=== PATIENT | female | born 1975 | race Caucasian/White ===

== ENCOUNTER 2016-07-21 14:10 | Day surgery (SDC) | payer OTHER ==
[~2016-07-21] VITALS: Ht 162.6 cm; Wt 113.8 kg
--- NOTE | 2016-07-21 08:39 | PCM.HPANE ---
Patient Data Surgeon Admitting Provider: Attending Provider:Radha Barroso MD Primary Care Physician:Antony Saldana MD Other Provider:Beth Melviningham Anesthesia Reason for Visit Right Upper Quadrant Pain Ht/WT & BMI Body Mass Index Allergies Coded Allergies: dichloralphenazone (Verified Allergy, Severe, memory loss, 03/25/16) isometheptene (Verified Allergy, Severe, memory loss, 03/25/16) amitriptyline (Unverified Allergy, Unknown, UNKNOWN, 03/25/16) amoxicillin (Unverified Allergy, Unknown, THROAT SWELLS (PT HAS TAKEN CEPHALOSPORINS W/O PROBLEMS), 03/25/16) Uncoded Allergies: MILK & MILK PRODUCTS (Allergy, Intermediate, 01/28/14) Past Anesthesia History Anesthesia History: Denies:: Anesthesia Reactions, Malignant Hyperthermia Diabetes History Hx Diabetes?: No MRSA MRSA: No Medications Reported Medications Zonisamide 50 Mg Ggxzxyj65 Mg PO BID 07/20/16 Sumatriptan Succinate (Zembrace Symtouch)3 Mg/0.5 Ml Pen.injctr3 Mg SQ BID PRN For Pain 07/20/16 Cholecalciferol (Vitamin D3) (Vitamin D3)5,000 Unit Capsule5,000 Unit PO DAILY 07/20/16 Albuterol Sulfate (Ventolin HFA Inhaler)200 Puff/18 Gm Inhaler2 Puff INH Q4 PRN For Wheezing #1 INHALER Ref 0 07/20/16 Sumatriptan Succinate 6 Mg/0.5 Ml Cartridge6 Mg SQ BID PRN Headache 07/20/16 Sumatriptan (Imitrex)100 Mg Unhehm702 Mg PO BID PRN Headache 07/20/16 Budesonide (Pulmicort Flexhaler)1 Puff/90 Mcg Aerp2 Puff IH BID #1 INHALER Ref 0 07/20/16 Ondansetron 8 Mg Tablet8 Mg PO TID PRN For Nausea 07/20/16 Omeprazole 40 Mg Capsule.dr40 Mg PO DAILY Ref 0 07/20/16 Nystatin 100,000 Unit/1 Ml Oral.qhdw737,000 Unit TOPICAL BID 07/20/16 Esomeprazole Magnesium (Nexium)40 Mg Capsule.dr40 Mg PO DAILY Ref 0 07/20/16 Montelukast 10 Mg Qjodeg63 Mg PO HS Ref 0 07/20/16 Methylprednisolone (MethylprednisoLONE)4 Mg Tablet4 Mg PO DAILY Ref 0 07/20/16 Ketorolac Tromethamine 10 Mg Qboovv28 Mg PO QID PRN For Pain 30 Days 07/20/16 Hydralazine 25 Mg Qyranp47 Mg PO DAILY Ref 0 07/20/16 Estradiol 1 Mg Tablet1 Mg PO DAILY Ref 0 07/20/16 Mometasone/Formoterol (Dulera 200 Mcg/5 Mcg Inhaler)13 Gm Hfa.aer.ad2 Puff IH BID 07/20/16 Dicyclomine (Bentyl)10 Mg Lqjgobr62 Mg PO QID PRN For Pain 07/20/16 Meclizine (Bonine)25 Mg Tab.chew25 Mg PO TID PRN For Dizziness 03/25/16 Gabapentin 300 Mg Waihdsf080-683 Mg PO HS Ref 0 03/25/16 Cetirizine 5 Mg Lsjewg50 Mg PO DAILY Ref 0 03/25/16 Duloxetine (Cymbalta)30 Mg Capsule.dr60 Mg PO DAILY Ref 0 01/28/14 Methocarbamol 500 Mg Adeyvp381 Mg PO BID 01/27/14 Discontinued Reported Medications Rizatriptan ODT (Rizatriptan)10 Mg Tab.bludmb51 Mg PO PRN 01/28/14 [clartin] No Conflict Check10 Mg PO DAILY 01/28/14 Cimetidine 200 Mg Lgncjn041 Mg PO DAILY 01/28/14 Beclomethasone Dipropionate (Qvar)8.7 Gm Aer.w.adap8.7 Gm IH 01/28/14 Albuterol HFA 8.5 Gm Hfa.aer.ad1-2 Puff IH Q 4-6HRS PRN PRN For Shortness of Breath #1 INHALER Ref 0 01/27/14 Aspirin/Acetaminophen/Caffeine (Migraine Relief Caplet)1 Each Tablet1 Each PO PRN PRN MIGRAINE 01/27/14 Ca Cmb No.1/Vit D3/B-6/FA/B12 (Vitamin D3 1,000 Unit Tablet)1 Each Tablet1 Each PO DAILY 30 Days 01/27/14 History History of ENT Problems?: Yes HEENT History: Positive for:: Sinus Problem Hx of Heart Problems?: No Cardiovascular History: Denies:: Congestive Heart Failure Hypertension Hx of Respiratory Problem?: Yes Respiratory History: Positive for:: Asthma Cough (CHRONIC) Dyspnea ([place]) Denies:: Tuberculosis Use of C-PAP Machine (SNORES) Hx Neurologic Problems?: Yes Neurological History: Positive for:: Headaches Hx of GI Problems?: Yes Gastrointestinal History: Positive for:: Gastroesphageal Reflux Heartburn Hx of Problems?: No Female Hx: Denies:: Currently Skin History: Positive for:: History Skin Disorders? (RASHES) Denies:: Pressure Ulcers Hx Musculoskeletal Problems?: Yes Musculoskeletal History: Denies:: Back Injury (C/OF NECK & BACK PAIN) Hx of Psycho/Social Problems?: Yes Psycho Social History: Positive for:: Anxiety Hx Depression Hx Surgeries?: Yes (MARCO) Hx Any Other Health Problems?: Yes Other History: Denies:: Cancer Endocrine Disease Hospitalization Thyroid Disease History Blood Transfusions: Denies:: Blood Transfusions Hx Diabetes: No Hx Alcohol Use: NoHx Substance Use: No Smoking Status: Current Every Day Smoker Have You Smoked inLast 12 mo: Yes Stop/Bang Risk Assessment Category Category 1A: Patient has history of documented sleep apnea, and HAS NOT received any narcotic, sedative or anesthesia administration during this stay. Category 1B: Patient has history of documented sleep apnea, and HAS received any narcotic , sedative or anesthesia administration during this stay Category 2: Patient has SUSPECTED Obstructive Sleep Apnea, and HAS received any narcotic , sedative or anesthesia administration during this stay. Category 3: Patient has SUSPECTED Obstructive Sleep Apnea and HAS NOT received narcotic, sedative or anesthesia administration during this stay. Category 4: Outpatient in Procedural Areas with known sleep apnea or who screen positive for High Risk via the STOP/BANG questionnaire. Plan Impression Patient chart reviewed, patient interviewed and anesthestic plan with risks, benefits, and alternatives discussed, and informed consent obtained. NPO Status: 1130pm Michael Louis MD Jul 21, 2016 08:39
[~2016-07-21 14:10] MED LIST: ALBU18HF INH; BUDE90AE IH; CETI5TAB28 PO; CHOL5000 PO; DICY10CA56 PO; DULO30CA PO; ESOM40CA41 PO; ESTR1TAB24 PO; GABA-502 PO; HYDR-3939 PO; IMI100 PO; KETO10TA PO; MECL-114 PO; METH4TAB12 PO; MOME13HF IH; MONT10TA23 PO; NYST1000 TOPICAL; OMEP40CA36 PO; ONDA-54 PO; ROB500 PO; SUMA6KIT2 SQ; ZONI50CA3 PO; [UNRECOGNIZED DRUG - CODE] SQ
[2016-07-21] MEDS ORDERED: fentaNYL-PF 50 mCg/mL 2 mL Inj ONE (14:11)
[2016-07-21] MEDS ORDERED: Propofol 10,000 mCg/mL 20 mL Inj ONE (14:11)
[2016-07-21 15:11] VITALS: BP 144/93; PULSE 94; RESP 16; O2SAT 100
[2016-07-21] MEDS: Lactated Ringer's 1,000 ML IV ONE ×2 (15:29→16:03)
[2016-07-21] MEDS ORDERED: Lactated Ringer's 1,000 ML IV SCH (15:36)
[2016-07-21] MEDS ORDERED: MetoCLOpramide 5 mg/mL 2 mL Inj IVPUSH PRN (15:40)
[2016-07-21] MEDS ORDERED: Atropine 0.4 mg/mL Inj IVPUSH PRN (15:40)
[2016-07-21] MEDS ORDERED: Ondansetron 2 mg/mL 2 mL Inj IVPUSH PRN (15:40)
--- NOTE | 2016-07-21 15:52 | PCM.HPANE ---
Patient Data Surgeon Admitting Provider: Attending Provider:Radha Barroso MD Primary Care Physician:Antony Saldana MD Other Provider:Adelita Melvin Anesthesia Reason for Visit Right Upper Quadrant Pain Ht/WT & BMI Height (Feet): 5 Height (Inches): 4 Weight (Kilograms): 113.85 Body Mass Index 42.00 Allergies Coded Allergies: dichloralphenazone (Verified Allergy, Severe, memory loss, 03/25/16) isometheptene (Verified Allergy, Severe, memory loss, 03/25/16) amitriptyline (Unverified Allergy, Unknown, UNKNOWN, 03/25/16) amoxicillin (Unverified Allergy, Unknown, THROAT SWELLS (PT HAS TAKEN CEPHALOSPORINS W/O PROBLEMS), 03/25/16) Uncoded Allergies: MILK & MILK PRODUCTS (Allergy, Intermediate, 01/28/14) Past Anesthesia History Anesthesia History: Positive for:: Anesthesia Reactions (CONFUSION/RESTLESSNESS ), Denies:: Abnormal Airway, Difficult Intubation, Fam Anesthesia Reaction, Fam Malignant Hypertherm, Malignant Hyperthermia Diabetes History Hx Diabetes?: No MRSA MRSA: No Medications Home Meds Incl Beta Inocente: No Reported Medications Zonisamide 50 Mg Omsdtib75 Mg PO BID 07/20/16 Cholecalciferol (Vitamin D3) (Vitamin D3)5,000 Unit Capsule5,000 Unit PO DAILY 07/20/16 Albuterol Sulfate (Ventolin HFA Inhaler)200 Puff/18 Gm Inhaler2 Puff INH Q4 PRN For Wheezing #1 INHALER Ref 0 07/20/16 Sumatriptan Succinate 6 Mg/0.5 Ml Cartridge6 Mg SQ BID PRN Headache 07/20/16 Sumatriptan (Imitrex)100 Mg Mrptns783 Mg PO BID PRN Headache 07/20/16 Budesonide (Pulmicort Flexhaler)1 Puff/90 Mcg Aerp2 Puff IH BID #1 INHALER Ref 0 07/20/16 Ondansetron 8 Mg Tablet8 Mg PO TID PRN For Nausea 07/20/16 Omeprazole 40 Mg Capsule.dr40 Mg PO DAILY Ref 0 07/20/16 Nystatin 100,000 Unit/1 Ml Oral.ymzi179,000 Unit TOPICAL BID 07/20/16 Esomeprazole Magnesium (Nexium)40 Mg Capsule.dr40 Mg PO DAILY Ref 0 07/20/16 Montelukast 10 Mg Lwybis70 Mg PO HS Ref 0 07/20/16 Methylprednisolone (MethylprednisoLONE)4 Mg Tablet4 Mg PO DAILY Ref 0 07/20/16 Ketorolac Tromethamine 10 Mg Idderd05 Mg PO QID PRN For Pain 30 Days 07/20/16 Estradiol 1 Mg Tablet1 Mg PO DAILY Ref 0 07/20/16 Mometasone/Formoterol (Dulera 200 Mcg/5 Mcg Inhaler)13 Gm Hfa.aer.ad2 Puff IH BID 07/20/16 Dicyclomine (Bentyl)10 Mg Sxkrwbd77 Mg PO QID PRN For Pain 07/20/16 Meclizine (Bonine)25 Mg Tab.chew25 Mg PO TID PRN For Dizziness 03/25/16 Gabapentin 300 Mg Hhnjwrh588-560 Mg PO HS Ref 0 03/25/16 Cetirizine 5 Mg Odirdn68 Mg PO DAILY Ref 0 03/25/16 Duloxetine (Cymbalta)30 Mg Capsule.dr60 Mg PO DAILY Ref 0 01/28/14 Methocarbamol 500 Mg Ystqpa177 Mg PO BID 01/27/14 Discontinued Reported Medications Sumatriptan Succinate (Zembrace Symtouch)3 Mg/0.5 Ml Pen.injctr3 Mg SQ BID PRN For Pain 07/20/16 Hydralazine 25 Mg Eohwqd59 Mg PO DAILY Ref 0 07/20/16 Rizatriptan ODT (Rizatriptan)10 Mg Tab.saxcgz23 Mg PO PRN 01/28/14 [clartin] No Conflict Check10 Mg PO DAILY 01/28/14 Cimetidine 200 Mg Yowaqh410 Mg PO DAILY 01/28/14 Beclomethasone Dipropionate (Qvar)8.7 Gm Aer.w.adap8.7 Gm IH 01/28/14 Albuterol HFA 8.5 Gm Hfa.aer.ad1-2 Puff IH Q 4-6HRS PRN PRN For Shortness of Breath #1 INHALER Ref 0 01/27/14 Aspirin/Acetaminophen/Caffeine (Migraine Relief Caplet)1 Each Tablet1 Each PO PRN PRN MIGRAINE 01/27/14 Ca Cmb No.1/Vit D3/B-6/FA/B12 (Vitamin D3 1,000 Unit Tablet)1 Each Tablet1 Each PO DAILY 30 Days 01/27/14 History History of ENT Problems?: Yes HEENT History: Positive for:: Sinus Problem Denies:: Abnormal Airway Difficult Intubation Dysphagia Hearing Problem Denture Type: Full- Upper Full- Lower Other HEENT Pertinent History: FULL UPPER AND LOWER LEFT AT HOME. Hx of Heart Problems?: Yes Cardiovascular History: Positive for:: Hypertension Denies:: AICD Atrial Fibrillation Chest Pain Congestive Heart Failure Pacemaker Valvular Heart Disease Hx of Respiratory Problem?: Yes Respiratory History: Positive for:: Asthma Dyspnea ([place]) Pneumonia Denies:: COPD Cough Hemoptysis Tuberculosis Use of C-PAP Machine (SNORES) Other Resp Pertinent History: HX OF HEAVY DAILY SMOKER Hx Neurologic Problems?: Yes Neurological History: Positive for:: Headaches Denies:: CVA Hx of GI Problems?: Yes Gastrointestinal History: Positive for:: Gall Bladder Disease (REMOVED) Gastroesphageal Reflux Heartburn Liver Disease (ENLARGED LIVER/SPLEEN) Denies:: Cirrhosis Diverticulitis Hiatal Hernia Rectal Bleeding Hx of Problems?: No Female Hx: Denies:: Currently (HYSTERECTOMY) Skin History: Positive for:: History Skin Disorders? (RASHES) Denies:: Pressure Ulcers Hx Musculoskeletal Problems?: Yes Musculoskeletal History: Positive for:: Fibromyalgia Denies:: Back Injury (C/OF NECK & BACK PAIN) Joint Replacement Hx of Psycho/Social Problems?: Yes Psycho Social History: Positive for:: Anxiety Denies:: Hx Depression Hx Surgeries?: Yes (LAP MARCO, HYSTO W/ OOPHERECTOMY) Hx Any Other Health Problems?: Yes Other History: Denies:: Cancer Endocrine Disease Hospitalization Thyroid Disease History Blood Transfusions: Denies:: Blood Transfusions Hx Diabetes: No Hx Alcohol Use: NoHx Substance Use: No Smoking Status: Current Every Day Smoker Have You Smoked inLast 12 mo: Yes Stop/Bang Treated for Sleep Apnea?: No Do You Have a CPAP Machine?: No (INSURANCE DENIES ) S-Snoring: Do You Snore Loudly: Yes T-Tired: feel tired, fatigued: Yes O-Obsered: Observed not breath: No P-Blood Pressure: treated: Yes B- Body Mass Index > 35 kg/m2: Yes A- Age over 50: No N- Neck Large Circumference: Yes G- Gender Male: No CHEPE Total Score: 5 CHEPE Risk Assessment: High Risk, =/>3 Yes Risk Assessment Category Category 1A: Patient has history of documented sleep apnea, and HAS NOT received any narcotic, sedative or anesthesia administration during this stay. Category 1B: Patient has history of documented sleep apnea, and HAS received any narcotic , sedative or anesthesia administration during this stay Category 2: Patient has SUSPECTED Obstructive Sleep Apnea, and HAS received any narcotic , sedative or anesthesia administration during this stay. Category 3: Patient has SUSPECTED Obstructive Sleep Apnea and HAS NOT received narcotic, sedative or anesthesia administration during this stay. Category 4: Outpatient in Procedural Areas with known sleep apnea or who screen positive for High Risk via the STOP/BANG questionnaire. Exam Exam Vital Signs Vital Signs Date Time Temp Pulse Resp B/P Pulse Ox O2 Delivery O2 Flow Rate FiO2 07/21/16 15:11 36.5 94 16 144/93 100 Room Air General Appearance: Alert, Oriented X3, Cooperative, No Acute Distress HEENT/AIRWAY: MP 2 Lungs: Clear to Auscultation, Normal Air Movement Heart: Exam Unremarkable, Regular Rate/Rhythm, No Murmurs/Rubs/Gallops Meds/Labs/Diagnostics Admission Meds Current Medications Lactated Ringer's (Lr) 1,000 ml @ 10 mls/hr Q24H ONCE IV Last administered on 07/21/16t 15:29; Start 07/21/16 at 09:23; Stop 07/22/16 at 09:22 Plan Impression Patient chart reviewed, patient interviewed and anesthestic plan with risks, benefits, and alternatives discussed, and informed consent obtained. NPO Status: 1130pm ASA Physical Status: ASA3 Severe Disease Anesthetic Plan: GA, MAC Bene/Risks/Altern/Consents: Yes HP Complete Prior to Induction: Yes Gerald Velazquez MD Jul 21, 2016 15:36
[2016-07-21 16:09] VITALS: BP 149/80; PULSE 78; RESP 16; O2SAT 97
[2016-07-21 16:19] VITALS: BP 172/82; PULSE 92; RESP 16; O2SAT 97
--- NOTE | 2016-07-21 16:19 | PCM.ANEP2 ---
Post Anesthesia Evaluation ASA/CMS Post Anesthesia VS in Patient's Normal Range?: Yes Resp Stable; Airway Patent?: Yes CV Function & Hydration Stable: Yes Mental Status Recovered?: Yes Pain control Satisfactory?: Yes N/V Control Satisfactory?: Yes Gerald Velazquez MD Jul 21, 2016 16:19
--- NOTE | 2016-07-21 21:35 | ENDO ---
[address] [address] ENDOSCOPY PROCEDURE PATIENT: FILIBERTO ZAZUETA : 1975 MR#: [id number] ADMIT: 07/21/2016 JOB ID: [id number] PROCEDURE: Esophagogastroduodenoscopy. INDICATION: Right upper quadrant pain. The patient's ASA classification, Mallampati score, and medications as per Dr. Durbin's anesthesia report. INSTRUMENT USED: GIF H 180 J. PROCEDURE DETAIL: After informed consent was obtained, the patient was brought into the GI suite, where she was placed on oxygen via nasal cannula and monitored with continuous pulse oximeter, telemetry, and blood pressure monitoring. A time-out was performed and then she was placed in the left lateral decubitus position and medications were administered for sedation. A bite block was placed. Standard EGD scope was then inserted through the bite block and advanced under direct visualization to the second portion of the duodenum without difficulty. FINDINGS: 1. Normal-appearing duodenal bulb, first and second portion. Multiple random biopsies were obtained. 2. Normal-appearing pylorus, antrum and gastric body. 3. Retroflexed views in the gastric body revealed a normal-appearing cardia and fundus. 4. Multiple random biopsies were obtained throughout the antrum and body of the stomach. 5. The GE junction was at approximately 40 cm. The GE junction appeared regular. There was a linear ulcer just above the GE junction which measured approximately 0.5 cm in length. Multiple biopsies were obtained. The remainder of the esophagus was otherwise unremarkable. IMPRESSION: Ulcerative esophagitis, otherwise normal exam to second portion of duodenum. RECOMMENDATIONS: 1. To restart PPI daily. 2. Reflux precautions. 3. Weight loss encouraged. COMPLICATIONS: None. ESTIMATED BLOOD LOSS: Less than 5 mL.
--- NOTE | 2016-07-25 10:38 | PATH ---
SURGICAL PATHOLOGY Attending Physician:Db Carias CASE STATUS: Signed Out PATIENT NAME: FILIBERTO ZAZUETA PID: [id number] : 06/29/1972 DATE COLLECTED:07/21/2016 00:00 SPECIMEN: 1: Duodenum, Biopsy 2: Gastric, Biopsy 3: Esophagus, Biopsy CLINICAL HISTORY: A: DUODENUM BIOPSY B: GASTRIC BIOPSY C: DISTAL ESOPHAGUS FINAL DIAGNOSIS: 1.DUODENUM, BIOPSY: NO DIAGNOSTIC ABNORMALITY. Negative for intraepithelial lymphocytosis, villous blunting, or other features of celiac sprue. Negative for Giardia organisms, dysplasia and malignancy. 2.GASTRIC BIOPSY: GASTRIC CORPUS AND ANTRUM WITH MILD CHRONIC GASTRITIS. Negative for Helicobacter organisms. Negative for intestinal metaplasia. No evidence of dysplasia or malignancy. 3.DISTAL ESOPHAGUS, BIOPSY: ESOPHAGEAL SQUAMOUS EPITHELIUM WITH MILD CHRONIC ACTIVE ESOPHAGITIS. Negative for intestinal metaplasia. No evidence of malignancy or dysplasia. ICD10 code K29.70 GROSS DESCRIPTION: The specimen is received in three formalin filled containers labeled with the patient's name. 1). The specimen sublabeled "duodenum" and consists of 3 portions of tissue which aggregate to 0.4 x 0.3 x 0.2 CM. The specimen is entirely submitted in cassette 1A. 2). The specimen is sublabeled "gastric" and consists of 3 portions of tissue which aggregate to 0.4 x 0.4 x 0.2 CM. The specimen is entirely submitted in cassette 2A. . 3). The specimen is sublabeled "distal esophagus" and consists of 3 portions of tissue which aggregate to 0.3 x 0.3 x 0.2 CM. The specimen is entirely submitted in cassette 3A. 07/22/2016 [facility] MICRO DESCRIPTION: See diagnosis. ICD-9 CODES: CPT CODES: 1: 58920 2: 50215 3: 36399 Electronically Signed Out Mao Cooper MD [facility] Pathology [facility] [address], [place] [address] Technical component performed at [facility], [facility] [address], [place], [address]
== END 2016-07-21 23:59 | disposition home or self-care (01) ==
LOC: EDBD 14:10 → END 14:10
PROVIDERS: ATTEND Internal Medicine Gastroenterology
DX: K22.10 Ulcer of esophagus without bleeding (principal); K29.50 Unspecified chronic gastritis without bleeding; M79.7 Fibromyalgia; I10 Essential (primary) hypertension; M06.9 Rheumatoid arthritis, unspecified; J45.909 Unspecified asthma, uncomplicated; F41.9 Anxiety disorder, unspecified; F43.29 Adjustment disorder with other symptoms; Z79.899 Other long term (current) drug therapy
CPT/HCPCS: 43239; J7120